=== PATIENT | female | born 1995 | race Caucasian/White ===

== ENCOUNTER 2017-04-01 10:11 | Emergency (ER) | payer BC, MEDICAID ==
[~2017-04-01] VITALS: Ht 157.5 cm; Wt 55.0 kg
[~2017-04-01 10:11] MED LIST: HYDR-2086 PO
[2017-04-01 10:24] VITALS: Ht 157.5 cm; Wt 55.0 kg
[2017-04-01] MEDS ORDERED: FLUORESCEIN STRIP LEFT EYE ONE (11:00)
[2017-04-01] MEDS ORDERED: TETRACAINE 0.5% 4 ML OPH LEFT EYE ONE (11:00)
--- NOTE | 2017-04-01 11:15 | ERD ---
ER Documentation Chief Complaint Date/Time DATE: 04/01/17 TIME: 11:08 Chief Complaint CAME IN VIA INTAKE DUE TO RIGHT EYE CHEMICAL EXPOSURE WITH INJURY HPI 22-year-old female otherwise healthy presents with exposure to the right eye with Barbicide side. She is asymptomatic at this time, denies visual changes, eye pain, drainage. She does not wear any glasses or contact lenses. ROS All systems reviewed and are negative except as per history of present illness. Medications Home Meds Reported Medications Hydrocodone Bit-Acetaminophen* (Vicodin*) 1 Each Tablet, 1 EACH PO for PAIN LEVEL 1-5 11/10/13 Allergies Allergies: Coded Allergies: No Known Allergy (Unverified , 11/10/13) PMhx/Soc History of Surgery: No Anesthesia Reaction: No Hx Neurological Disorder: No Hx Respiratory Disorders: No Hx Cardiac Disorders: No Hx Psychiatric Problems: No Hx Miscellaneous Medical Probl: No Hx Alcohol Use: No Hx Substance Use: No Hx Tobacco Use: No Physical Exam Vitals Vital Signs Date Time Temp Pulse Resp B/P Pulse Ox O2 Delivery O2 Flow Rate FiO2 04/01/17 10:24 98.5 66 18 113/70 5 pulse ox 95% correction Physical Exam General: Well-developed, well-nourished. The patient appears in no acute distress. HEENT: Head is normocephalic, atraumatic. No scleral icterus. Bilateral eyes are Amandeep, extraocular movements intact, no injection, no swelling. Fluorescein staining has no uptake on the right eye. Neck: Supple. Nontender. Lungs: Clear to auscultation. Normal air movement. Heart: Regular rate and rhythm. S1 and S2 are normal. No murmurs, gallops, or rubs. Abdomen: Nondistended. Extremities: No clubbing or cyanosis. Moving extremities x 4. No weakness. Neurologic: Alert and oriented 3. No focal deficits. Normal speech and gait. Skin: Normal turgor. No rash or lesions. Results 24 hrs Current Medications Medications (Trade) Dose Ordered Sig/Bronwyn Route PRN Reason Start Time Stop Time Status Last Admin Dose Admin Fluorescein Sodium (Qeasb-O-Pviil) 1 strip ONCE ONCE LEFT EYE 04/01/17 11:00 04/01/17 11:01 DC Tetracaine HCl (Tetracaine 0.5% Steri-Unit Dunia) 1 drop ONCE ONCE LEFT EYE 04/01/17 11:00 04/01/17 11:01 DC Procedures/MDM ED COURSE: I spoke with Poison control, who states that based on clinical examination, and given she has no uptake there is unlikely, any skilled nursing problem and very low risk for infection. Medical decision makin-year-old female presents with benign examination after/injury from barbicide, she is mixing it with water solution at the time/ and her eye. She does not have any uptake on fluorescein staining, no visual deficits. She is to continue artificial tears, and look out for signs of infection. Departure Diagnosis: Primary Impression: Eye injury Condition: ALEK Buenrostro PA-C Apr 01, 2017 11:15
== END 2017-04-01 11:56 | disposition home or self-care (01) ==
LOC: FTE 10:11
DX: S05.91XA Unspecified injury of right eye and orbit, initial encounter (principal); X58.XXXA Exposure to other specified factors, initial encounter; Y92.9 Unspecified place or not applicable
CPT/HCPCS: Z7502; Z7610; 99283